=== PATIENT | female | born 1965 | race Caucasian/White ===

== ENCOUNTER 2017-09-08 12:34 | Day surgery (SDC) | payer OTHER ==
[2017-09-08] MEDS ORDERED: PROPOFOL 20 ML (13:56)
[2017-09-08] MEDS ORDERED: MIDAZOLAM 1 MG/ML 2 ML INJ (13:57)
[2017-09-08] MEDS ORDERED: FENTAnyl 50 MCG/ML VIAL (13:57)
== END 2017-09-08 17:04 | disposition home or self-care (01) ==
LOC: GIL 12:34
DX: K92.1 Melena (principal); D12.5 Benign neoplasm of sigmoid colon; K64.4 Residual hemorrhoidal skin tags; K64.8 Other hemorrhoids; E11.9 Type 2 diabetes mellitus without complications
CPT/HCPCS: 45380; 82962; 88305